=== PATIENT | male | born 1950 | race Caucasian/White ===

== ENCOUNTER 2017-09-30 13:42 | Day surgery (SDC) | payer MEDICARE, OTHER ==
[~2017-09-30] VITALS: Ht 175.3 cm; Wt 98.0 kg
[2017-09-30] MEDS ORDERED: LEVO112T5 PO (14:06)
[2017-09-30] MEDS ORDERED: CYAN-19 PO (14:06)
[2017-09-30 14:23] VITALS: BP 117/74
[2017-09-30] MEDS ORDERED: MIDAZolam 5mg/5ml vial ONE (14:38)
[2017-09-30] MEDS ORDERED: fentaNYL/PF 50MCG/1 ML 2ML syringe ONE (14:38)
[2017-09-30 15:03] VITALS: BP 124/77
[2017-09-30 15:13] VITALS: BP 107/75
[2017-09-30 15:23] VITALS: BP 107/67
[2017-09-30 15:33] VITALS: BP 109/65
== END 2017-09-30 15:45 | disposition home or self-care (01) ==
LOC: GI LAB 13:42
PROVIDERS: ATTEND Internal Medicine Gastroenterology
DX: K64.8 Other hemorrhoids (principal); E03.9 Hypothyroidism, unspecified; Z72.89 Other problems related to lifestyle; Z98.890 Other specified postprocedural states; Z79.899 Other long term (current) drug therapy
CPT/HCPCS: 45378; G0500; J2250; J3010; J7030; A4620